=== PATIENT | male | born 1955 | race Caucasian/White ===

== ENCOUNTER 2018-11-24 10:12 | Observation (INO) | payer OTHER ==
[~2018-11-24] VITALS: Ht 172.7 cm; Wt 84.4 kg
[~2018-11-24 10:12] MED LIST: AZIT250 PO; HYDACE5 PO; INDO50 PO; LORA1 PO; METPRE4DP PO; ONDA4 PO; Ventolin/Prove6.7 GM INH; Zithromax250 MG PO
[2018-11-24 10:54] LABS: BASOPHILS ABSOLUTE AUTO 0.01 K/mm3 (0.00-0.23); BASOPHILS PERCENT AUTO 0 % (0-2); EOSINOPHILS ABSOLUTE AUTO 0.02 K/mm3 (0.00-0.68); EOSINOPHILS PERCENT AUTO 1 % (0-6); Hematocrit 46.5 % (37.0-53.0); Hemoglobin 16.1 g/dL (13.5-17.5); IMMATURE GRAN ABSOLUTE AUTO 0.01 K/mm3 (0.00-0.10); IMMATURE GRAN PERCENT AUTO 0 % (0-1); LYMPHOCYTES ABSOLUTE AUTO 0.72 K/mm3 (0.84-5.20); LYMPHOCYTES PERCENT AUTO 21 % (21-46); MONOCYTES PERCENT AUTO 9 % (4-13); Mean Corpuscular HGB 32.2 pg (26.0-34.0); Mean Corpuscular HGB Conc 34.6 g/dL (31.5-36.5); Mean Corpuscular Volume 93 fL (80-100); NEUTROPHILS ABSOLUTE AUTO 2.42 K/mm3 (1.96-9.15); NEUTROPHILS PERCENT AUTO 70 % (41-73); Platelet Count 173 K/mm3 (150-400); RDW Coefficient Variation 12.1 % (11.7-14.2); RDW Standard Deviation 41.5 fL (35.1-46.3); White Blood Cell Count 3.48 K/mm3 (4.00-11.30)
[2018-11-24 11:23] LABS: Alanine Aminotransfer (ALT/SGP 21 U/L (12-78); Albumin, Blood 3.5 g/dL (3.4-5.0); Albumin/Globulin Ratio 0.9 (0.8-1.8); Alk Phos 100 U/L (50-136); Anion Gap 9 mmol/L (6-16); Aspartate Aminotrans (AST/SGOT 13 U/L (12-37); Bilirubin, Total 0.6 mg/dL (0.1-1.0); Blood Urea Nitrogen 8 mg/dL (8-24); Bun/Creatinine Ratio 10.4 (12.0-20.0); CO2, Blood 24 mmol/L (21-32); Calcium, Blood 8.3 mg/dL (8.5-10.1); Chloride, Blood 107 mmol/L (98-108); Creatinine, Blood 0.77 mg/dL (0.60-1.20); Globulin, Blood 4.1 g/dL (2.2-4.0); Glomerular Filtration Rate >60 (60-); Glucose, Blood 116 mg/dL (70-99); Potassium, Blood 3.6 mmol/L (3.5-5.5); Sodium, Blood 140 mmol/L (136-145); Total Protein, Blood 7.6 g/dL (6.4-8.2)
[2018-11-24] MEDS ORDERED: ATOR10 PO (13:10)
[2018-11-24] MEDS ORDERED: ASPI325EC PO (13:20)
[2018-11-26 05:06] LABS: BASOPHILS ABSOLUTE AUTO 0.01 K/mm3 (0.00-0.23); BASOPHILS PERCENT AUTO 0 % (0-2); EOSINOPHILS ABSOLUTE AUTO 0.17 K/mm3 (0.00-0.68); EOSINOPHILS PERCENT AUTO 4 % (0-6); Hematocrit 42.6 % (37.0-53.0); Hemoglobin 14.7 g/dL (13.5-17.5); IMMATURE GRAN ABSOLUTE AUTO 0.01 K/mm3 (0.00-0.10); IMMATURE GRAN PERCENT AUTO 0 % (0-1); LYMPHOCYTES PERCENT AUTO 29 % (21-46); MONOCYTES ABSOLUTE AUTO 0.39 K/mm3 (0.16-1.47); MONOCYTES PERCENT AUTO 9 % (4-13); Mean Corpuscular HGB Conc 34.5 g/dL (31.5-36.5); Mean Platelet Volume 10.5 fL (9.1-12.4); NEUTROPHILS ABSOLUTE AUTO 2.59 K/mm3 (1.96-9.15); NEUTROPHILS PERCENT AUTO 58 % (41-73); Platelet Count 163 K/mm3 (150-400); RDW Coefficient Variation 12.2 % (11.7-14.2); RDW Standard Deviation 42.7 fL (35.1-46.3); Red Blood Cell Count 4.45 M/mm3 (4.30-5.90); White Blood Cell Count 4.47 K/mm3 (4.00-11.30)
[2018-11-26 05:13] LABS: Mean Corpuscular Volume 96 fL (80-100)
[2018-11-26 05:30] LABS: Anion Gap 9 mmol/L (6-16); Blood Urea Nitrogen 14 mg/dL (8-24); Bun/Creatinine Ratio 18.4 (12.0-20.0); CO2, Blood 25 mmol/L (21-32); Chloride, Blood 109 mmol/L (98-108); Creatinine, Blood 0.76 mg/dL (0.60-1.20); Glomerular Filtration Rate >60 (60-); Glucose, Blood 99 mg/dL (70-99); Potassium, Blood 3.8 mmol/L (3.5-5.5); Sodium, Blood 143 mmol/L (136-145)
== END 2018-11-26 17:45 | disposition home or self-care (01) ==
LOC: ER 10:12 → ERHOLD 10:13 → SURS 10:13
PROVIDERS: Hospitalist; Physician Assistant; ADMIT Internal Medicine
DX: R07.89 Other chest pain (principal); J44.9 Chronic obstructive pulmonary disease, unspecified; R77.8 Other specified abnormalities of plasma proteins; E78.5 Hyperlipidemia, unspecified; F41.9 Anxiety disorder, unspecified; Z87.891 Personal history of nicotine dependence
CPT/HCPCS: 36415; 71046; 78452; 80048; 80053; 83880; 84484; 85025; 93005; 93010; 93017; 96372; 99285-25; A9500; G0378; J0706; J1650; J2785

== ENCOUNTER → 2020-06-29 | Outpatient (CLI) | payer MEDICARE, BC ==
[~2020-06-29] MED LIST changes: +ASPI325EC PO; +ATOR10 PO
[2020-06-29 15:04] LABS: BASOPHILS ABSOLUTE AUTO 0.02 K/mm3 (0.00-0.23); BASOPHILS PERCENT AUTO 0 % (0-2); EOSINOPHILS ABSOLUTE AUTO 0.21 K/mm3 (0.00-0.68); EOSINOPHILS PERCENT AUTO 4 % (0-6); Hematocrit 46.5 % (37.0-53.0); Hemoglobin 15.8 g/dL (13.5-17.5); IMMATURE GRAN ABSOLUTE AUTO 0.01 K/mm3 (0.00-0.10); IMMATURE GRAN PERCENT AUTO 0 % (0-1); LYMPHOCYTES ABSOLUTE AUTO 1.89 K/mm3 (0.84-5.20); LYMPHOCYTES PERCENT AUTO 37 % (21-46); MONOCYTES ABSOLUTE AUTO 0.47 K/mm3 (0.16-1.47); MONOCYTES PERCENT AUTO 9 % (4-13); Mean Corpuscular HGB 32.6 pg (26.0-34.0); Mean Corpuscular Volume 96 fL (80-100); Mean Platelet Volume 10.8 fL (9.1-12.4); NEUTROPHILS ABSOLUTE AUTO 2.56 K/mm3 (1.96-9.15); NEUTROPHILS PERCENT AUTO 50 % (41-73); Platelet Count 186 K/mm3 (150-400); RDW Coefficient Variation 12.1 % (11.7-14.2); RDW Standard Deviation 42.5 fL (35.1-46.3); Red Blood Cell Count 4.85 M/mm3 (4.30-5.90); White Blood Cell Count 5.16 K/mm3 (4.00-11.30)
[2020-06-29 15:44] LABS: Alanine Aminotransfer (ALT/SGP 30 U/L (12-78); Albumin, Blood 3.4 g/dL (3.4-5.0); Albumin/Globulin Ratio 0.9 (0.8-1.8); Alk Phos 99 U/L (50-136); Anion Gap 7 mmol/L (6-16); Aspartate Aminotrans (AST/SGOT 19 U/L (12-37); Bilirubin, Total 0.6 mg/dL (0.1-1.0); CO2, Blood 26 mmol/L (21-32); Calcium, Blood 8.7 mg/dL (8.5-10.1); Chloride, Blood 109 mmol/L (98-108); Cholesterol 211 mg/dL (50-200); Globulin, Blood 3.7 g/dL (2.2-4.0); Glucose, Blood 99 mg/dL (70-99); HDL Cholesterol 53 mg/dL (>39); LDL/HDL RATIO 2.5; Low Density Lipoprotein Chol 132 mg/dL (0-110); Potassium, Blood 4.1 mmol/L (3.5-5.5); Sodium, Blood 142 mmol/L (136-145); Total Protein, Blood 7.1 g/dL (6.4-8.2); Triglycerides 128 mg/dL (30-160); Very Low Density Lipoprot Chol 25 mg/dL (6-32)
[2020-06-29 15:46] LABS: Blood Urea Nitrogen 13 mg/dL (8-24); Bun/Creatinine Ratio 14.7 (12.0-20.0); Creatinine, Blood 0.88 mg/dL (0.60-1.20); Glomerular Filtration Rate >60 (60-)
== END | disposition home or self-care (01) ==
LOC: LAB 13:08 → LAB SHORT 13:08
PROVIDERS: Family Medicine
DX: Z12.5 Encounter for screening for malignant neoplasm of prostate (principal); E78.2 Mixed hyperlipidemia; I10 Essential (primary) hypertension
CPT/HCPCS: 80053; 80061; 85025; G0103

== ENCOUNTER → 2020-07-04 | Outpatient (CLI) | payer MEDICARE, BC | END | disposition home or self-care (01) | LOC: PLD 14:49 → LAB SHORT 14:49 | DX: D04.71 Carcinoma in situ of skin of right lower limb, including hip (principal); D22.72 Melanocytic nevi of left lower limb, including hip | CPT/HCPCS: 88305 ==

== ENCOUNTER → 2020-08-30 | Outpatient (CLI) | payer MEDICARE, BC | END | disposition home or self-care (01) | LOC: LAB SHORT 14:42 → LAB 14:42 | DX: D48.5 Neoplasm of uncertain behavior of skin (principal) | CPT/HCPCS: 88305 ==

== ENCOUNTER → 2020-12-26 | Outpatient (CLI) | payer MEDICARE, BC | LOC: LAB SHORT 11:27 → LAB 11:27 | DX: D48.5 Neoplasm of uncertain behavior of skin (principal); D04.62 Carcinoma in situ of skin of left upper limb, including shoulder; L81.4 Other melanin hyperpigmentation; L57.0 Actinic keratosis | CPT/HCPCS: 88305 ==

== ENCOUNTER → 2021-06-26 | Outpatient (CLI) | payer MEDICARE, BC | LOC: LAB SHORT 15:08 → LAB 15:08 | DX: D48.5 Neoplasm of uncertain behavior of skin (principal) | CPT/HCPCS: 88305 ==

== ENCOUNTER 2023-02-05 08:54 | Day surgery (SDC) | payer MEDICARE, BC ==
[~2023-02-05] VITALS: Ht 175.3 cm; Wt 89.5 kg
[2023-02-05] VITALS (13 sets, daily range): BP systolic 105–150; BP diastolic 68–99
[2023-02-05] MEDS ORDERED: AMLO5 PO (09:13)
--- NOTE | 2023-02-05 09:18 | NUR ---
Ambulatory in Day Surgery History, Chart, Medications and Allergies reviewed before start of procedure. Lungs clear T/O to Auscultation. Patient confirms NPO status and agrees with scheduled surgery. Pre-Op teaching done. Pt verbalizes understanding. Patient States Post-Procedure ride home has been arranged.
--- NOTE | 2023-02-05 09:32 | NUR ---
02/05/23 0932 Norma Cunningham HISTORY, CHART, MEDICATIONS AND ALLERGIES REVIEWED BEFORE START OF PROCEDURE. PATIENT CONFIRMS NPO STATUS AND AGREES WITH SCHEDULED PROCEDURE. 3-LEAD EKG REVIEWED WITH PHYSICIAN PRIOR TO START OF PROCEDURE. MONITOR INTACT WITH CONTINUOUS PULSE OXIMETRY,CAPNOGRAPHY, 3-LEAD EKG, INTERMITTENT BP. SUPPLEMENTAL O2 TO BE TITRATED THROUGHOUT PROCEDURE TO MAINTAIN O2 SATURATION ABOVE 90%. PATIENT DETERMINED TO BE ASA APPROPRIATE FOR PROPOFOL SEDATION PRIOR TO START OF PROCEDURE BY .
--- NOTE | 2023-02-05 10:22 | NUR ---
Patient up to Ambulate independently. Gait steady. Discharge instructions reviewed with patient. Patient verbalizes understanding. Copy given to patient to take home. Discharged via wheelchair to private car for ride home. PATIENT'S GLASSES GIVEN BACK TO HIM ALONG WITH CLOTHES.
== END 2023-02-05 23:03 | disposition home or self-care (01) ==
LOC: ORSCMMR 08:54 → ORD 09:30 → ORSCMMR 23:03
PROVIDERS: Internal Medicine Gastroenterology
PROC: 0DBP8ZX Excision of Rectum, Via Natural or Artificial Opening Endoscopic, Diagnostic (ICD-10-PCS; principal; 2023-02-05 09:30)
DX: Z12.11 Encounter for screening for malignant neoplasm of colon (principal); K62.1 Rectal polyp; I10 Essential (primary) hypertension; E78.00 Pure hypercholesterolemia, unspecified; Z79.899 Other long term (current) drug therapy
CPT/HCPCS: 88305; J2704; J7120

== ENCOUNTER 2024-11-02 06:07 | Day surgery (SDC) | payer MEDICARE, BC ==
[2024-11-02] VITALS (12 sets, daily range): BP systolic 100–144; BP diastolic 67–93
[~2024-11-02] VITALS: Ht 167.6 cm; Wt 92.7 kg
[~2024-11-02 06:07] MED LIST changes: +AMLO5 PO; +LISI20 PO
[2024-11-02] MEDS ORDERED: Acetaminophen 500 MG Tab PO SCH ×2 (06:15→16:00)
[2024-11-02] MEDS ORDERED: Lactated Ringer's 1,000 ML IV SCH ×2 (06:15→09:15)
[2024-11-02] MEDS ORDERED: CeFAZolin Sodium 2,000 MG in NS 100 ML IV SCH ×2 (06:15→16:00)
[2024-11-02] MEDS ORDERED: OxyCODONE HCL 10 MG TABCR PO SCH (06:15)
[2024-11-02] MEDS ORDERED: Chlorhexidine Mouth Care 15 ML UDC MT SCH (06:15)
[2024-11-02] MEDS ORDERED: Ropivacaine 0.5% HCl/Pf 123.125 MG,EPINEPHrine HCL 0.25 MG,Ketorolac Tromethamine 15 MG... INFIL SCH (06:15)
[2024-11-02] MEDS ORDERED: Tranexamic Acid 100 ML IV SCH (06:15)
[2024-11-02] MEDS ORDERED: ASPI81CH PO (06:45)
[2024-11-02] MEDS ORDERED: GLUC500 PO (06:46)
[2024-11-02] MEDS ORDERED: CeFAZolin Sodium 2,000 MG VIAL ONE (07:03)
[2024-11-02] MEDS ORDERED: FentaNYL Citrate 50 MCG/ML 2 ML Injection ONE (07:09)
[2024-11-02] MEDS ORDERED: propofoL 20 ML IV ONE ×3 (07:09→08:48)
[2024-11-02] MEDS ORDERED: Midazolam HCl 1MG / ML 2ML Vial ONE (07:09)
[2024-11-02] MEDS ORDERED: Lidocaine HCl 2% 20 ML MDV ONE (07:10)
--- NOTE | 2024-11-02 07:25 | NUR ---
Ambulatory in Day SurgeryPre-Op teaching done. Pt verbalizes understanding. History, Chart, Medications and Allergies reviewed before start of procedure.Patient confirms NPO status and agrees with scheduled surgery. Patient reports completing Chlorhexadine shower X2 prior to admission to hospital.
--- NOTE | 2024-11-02 08:14 | NUR ---
11/02/24 0814 Mahi Rivera SPINAL BLOCK COMPLETED BY UPON ENTRY TO OR.
[2024-11-02] MEDS ORDERED: Dexamethasone Sod Phos 10 MG/ML 1ML VIAL ONE (08:37)
[2024-11-02] MEDS ORDERED: Phenylephrine HCl 100 MCG/ML-NS 10MLSYR (1MG/10ML) ONE (08:41)
[2024-11-02] MEDS ORDERED: Ketorolac Tromethamine 30mg Vial ONE (08:44)
[2024-11-02] MEDS ORDERED: Metoclopramide HCl 5MG / ML 2ML Vial IV PRN (09:15)
[2024-11-02] MEDS ORDERED: Magnesium Hydroxide Conc 10 ML UDC PO PRN (09:15)
[2024-11-02] MEDS ORDERED: FLU VACC TS2024-25(6MOS UP)/PF 45 MCG/0.5 ML SYRINGE IM SCH (09:20)
[2024-11-02] MEDS ORDERED: DiphenhydrAMINE HCL 25 MG Cap PO PRN (09:20)
[2024-11-02] MEDS ORDERED: Bisacodyl 10 MG Supp PR PRN (09:20)
[2024-11-02] MEDS ORDERED: Ondansetron HCl 2 MG / ML 2ML Vial IV PRN (09:20)
[2024-11-02] MEDS ORDERED: HYDROmorphone HCl/Pf 1MG SYR IV PRN (09:20)
[2024-11-02] MEDS ORDERED: OxyCODONE HCL 5 MG TAB PO PRN ×2 (09:25)
[2024-11-02] MEDS ORDERED: Prochlorperazine Edisylate 10 mg Vial IV PRN (09:25)
[2024-11-02] MEDS ORDERED: Promethazine HCl 25 MG Tab PO PRN (09:25)
--- NOTE | 2024-11-02 09:50 | NUR ---
PT ARRIVED TO UNIT FROM PACU AT APROX 0940. PT POD 0 R ANTONY, AQUACEL DRESSING C/D/I. DERMATOMES L2. PT DENIES ANY PAIN UPON ARRIVAL. LUNGS CLEAR T/O. PT DENIES ANY CP OR SOB, VSS UPON ARRIVAL TO UNIT.
--- NOTE | 2024-11-02 10:12 | NUR ---
ASSUMPTION OF CARE THIS RN ASSUMED CARE FROM MIKAYLA COTTO FOLLOWING TRANSFER TO UNIT. ALERT AND ORIENTED X4. COMMUNICATES NEEDS EFFECTIVELY. GLASSES AT BEDSIDE. S/P R ANTONY WITH SPINAL - REPORTS MINIMAL SENSATION TO BLE, IS ABLE TO WIGGLE TOES SOME. CAP REFILL <3 SECONDS. PPP. AQUACEL DRESSING TO R HIP C/D/I - POLAR PACK IN PLACE. VSS. SBP 100s. MAP >65. IVF INFUSING PER EMAR. ON ROOM AIR, SATs >90%. RR EVEN, UNLABORED. LUNG SOUNDS CLEAR. DENIES N/V - WATER AND SNACKS WITHIN REACH. AWAITING SPONTANEOUS POST VOID. CALL LIGHT IN REACH.
--- NOTE | 2024-11-02 10:25 | NUR ---
REVIEWED MIKAYLA RNs ADMIN ASSESSMENT - THIS RN AGREES WITH DOCUMENTATION
[2024-11-02] MEDS ORDERED: Ketorolac Tromethamine 15mg Vial IV SCH (12:00)
--- NOTE | 2024-11-02 14:49 | NUR ---
DISCHARGE NOTE NO ACUTE CHANGES SINCE ASSUMPTION OF CARE NOTE. S/P R ANTONY. VSS. AQUACEL DRESSING C/D/I. REPORTS MINIMAL PAIN - DECLINED MANAGEMENT PER EMAR. ABLE TO WORK WITH PHYSICAL THERAPY THIS AFTERNOON - CLEARED FOR DC HOME. PATIENT VOIDING. TOLERATING PO INTAKE. AMBULATING WITH SBA FWW GB. IV REMOVED. DC EDUCATION PROVIDED - PATIENT STATES UNDERSTANDING. EXTRA AQUACEL DRESSINGS PROVIDED FOR WOUND CARE AT HOME. 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 PERSONAL BELONGINGS AND POLAR PACK WITH PATIENT FOR DC.
[2024-11-02] MEDS ORDERED: Docusate Sodium 100 MG Cap PO SCH (21:00)
[2024-11-03] MEDS ORDERED: AmLODIPine Besylate 5 MG Tab PO SCH (09:00)
[2024-11-03] MEDS ORDERED: Glucosamine Sulfate 500 MG Cap PO SCH (09:00)
[2024-11-03] MEDS ORDERED: Atorvastatin 10 MG Tab PO SCH (09:00)
[2024-11-03] MEDS ORDERED: Aspirin 81 MG Chew PO SCH (09:00)
[2024-11-03] MEDS ORDERED: Lisinopril 20 MG Tab PO SCH (09:00)
== END 2024-11-02 14:59 | disposition home or self-care (01) ==
LOC: ORSCMMR 06:07 → ORD 07:30 → SURS 09:40 → ORSCMMR 14:59 → SURS 14:59
PROVIDERS: Orthopaedic Surgery
PROC: 0SR90JZ Replacement of Right Hip Joint with Synthetic Substitute, Open Approach (ICD-10-PCS; principal; 2024-11-02 07:30)
DX: M16.11 Unilateral primary osteoarthritis, right hip (principal); I10 Essential (primary) hypertension; E78.5 Hyperlipidemia, unspecified; Z79.899 Other long term (current) drug therapy; Z79.82 Long term (current) use of aspirin
CPT/HCPCS: 72170; 97110; 97116; 97162; A9270; C1776; J0171; J0690; J0735; J1100; J1885; J2250; J2371; J2704; J2795; J3010; J7120